=== PATIENT | male | born 1930 | race Caucasian/White ===

== ENCOUNTER → 2016-10-03 | Outpatient (CLI) | payer OTHER ==
--- NOTE | 2016-10-06 13:04 | PCVCIMAG ---
APPROVED REPORT Study performed: 10/03/2016 14:42:48 EXAM: Comprehensive 2D, Doppler, and color-flow Echocardiogram Patient Location: Echo lab Status: routine Other Information Study Quality: Adequate Technically limited study due to POOR ACOUSTIC WINDOW. Indications Abnormal ECG Atrial Fibrillation Hypertension/HDD 2D Dimensions LVEF(%): 65.13 (>50%) IVSd: 10.36 (7-11mm)LVOT Diam: 22.68 (18-24mm) LVDd: 33.94 mm PWd: 10.39 (7-11mm)Ascending Ao: 37.51 (22-36mm) LVDs: 22.14 (25-40mm) Left Atrium: 41.12 (27-40mm) Aortic Root: 30.21 mm LV Single Plane 4CH: 49.85 % Gr's LVEF: 65.13 % Volumes Left Atrial Volume (Systole) Single Plane 4CH: 72.81 mLSingle Plane 2CH: 71.28 mL LA ESV Index: 38.00 mL/m2 Aortic Valve AoV Peak Drew.: 1.23 m/s AO Peak Gr.: 6.07 mmHgLVOT Max P.18 mmHg LVOT Max V: 1.14 m/s BRAD Vmax: 3.73 cm2 Mitral Valve MV E Max Drew.: 1.13 m/s MV PHT: 32.91 ms MVA (PHT): 6.69 cm2 IVRT: 79.58 ms TDI E/Lateral E': 8.07E/Medial E': 28.25 Medial E' Drew.: 0.04 m/s Lateral E' Drew.: 0.14 m/s Pulmonary Valve PV Peak Drew.: 0.74 m/sPV Peak Gr.: 2.19 mmHg Tricuspid Valve TR Peak Drew.: 5.28 m/s TR Peak Gr.: 111.53 mmHg TV Vmax: 1.02 m/s Left Ventricle The left ventricle is normal size. There is normal LV segmental wall motion. Borderline concentric left ventricular hypertrophy. Left ventricular systolic function is normal. The left ventricular ejection fraction is within the normal range. LVEF is 55-60%. This study is not technically sufficient to allow evaluation of the LV diastolic function due to atrial fibrillation. Right Ventricle The right ventricle is normal size. The right ventricular systolic function is normal. Atria Left atrium is mildly dilated. The right atrium size is normal. Aortic Valve The aortic valve is normal in structure. Trace aortic regurgitation. There is no aortic valvular stenosis. Mitral Valve The mitral valve is normal in structure. There is no mitral valve regurgitation noted. No evidence of mitral valve stenosis. Tricuspid Valve The tricuspid valve is normal in structure. Mild tricuspid regurgitation. Pulmonic Valve The pulmonary valve is normal in structure. There is no pulmonic valvular regurgitation. Great Vessels The aortic root is normal in size. Ascending aorta is not well visualized. IVC is normal in size and collapses with >50% inspiration Pericardium There is no pericardial effusion. There is no pleural effusion. <Conclusion> The left ventricle is normal size. LVEF is 55-60%. Left atrium is mildly dilated. The aortic valve is normal in structure. Trace aortic regurgitation. The mitral valve is normal in structure. The tricuspid valve is normal in structure. Mild tricuspid regurgitation. The pulmonary valve is normal in structure. Ascending aorta is not well visualized.
== END | disposition home or self-care (01) ==
LOC: PCVCIMAG 14:23
PROVIDERS: ATTEND Internal Medicine
DX: I35.1 Nonrheumatic aortic (valve) insufficiency (principal); I07.1 Rheumatic tricuspid insufficiency; I25.10 Atherosclerotic heart disease of native coronary artery without angina pectoris; I48.3 Typical atrial flutter; I10 Essential (primary) hypertension; E78.5 Hyperlipidemia, unspecified; E05.90 Thyrotoxicosis, unspecified without thyrotoxic crisis or storm; R94.31 Abnormal electrocardiogram [ECG] [EKG]; E78.00 Pure hypercholesterolemia, unspecified; I48.91 Unspecified atrial fibrillation; Z95.1 Presence of aortocoronary bypass graft; Z88.2 Allergy status to sulfonamides
CPT/HCPCS: 93005; 93306; G0463

== ENCOUNTER → 2017-10-16 | Outpatient (CLI) | payer OTHER | END | disposition home or self-care (01) | LOC: PCVCCLINIC 13:10 | PROVIDERS: ATTEND Internal Medicine | DX: I48.92 Unspecified atrial flutter (principal); I25.10 Atherosclerotic heart disease of native coronary artery without angina pectoris; E78.5 Hyperlipidemia, unspecified; Z79.82 Long term (current) use of aspirin; Z79.899 Other long term (current) drug therapy; Z88.8 Allergy status to other drugs, medicaments and biological substances | CPT/HCPCS: 93005; G0463 ==

== ENCOUNTER → 2018-10-30 | Outpatient (CLI) | payer OTHER | END | disposition home or self-care (01) | LOC: PCVCCLINIC 13:35 | PROVIDERS: ATTEND Internal Medicine | DX: I48.91 Unspecified atrial fibrillation (principal); E78.5 Hyperlipidemia, unspecified; I10 Essential (primary) hypertension; I25.10 Atherosclerotic heart disease of native coronary artery without angina pectoris; Z79.82 Long term (current) use of aspirin | CPT/HCPCS: 36415; 80061; 93005; G0463 ==